=== PATIENT | female | born 1995 | race Caucasian/White ===

== ENCOUNTER 2018-11-09 18:21 | Emergency (ER) | payer SELFPAY ==
[~2018-11-09] VITALS: Ht 149.9 cm; Wt 63.5 kg
[2018-11-09 18:21] VITALS: BP_SYST 129
--- NOTE | 2018-11-09 18:27 | NUR ---
BROUGHT BACK TO BED #2 AND TRIAGED. REPORT GIVEN TO ROX
--- NOTE | 2018-11-09 18:45 | NUR ---
Patient is awake, alert, and oriented x4. She is complaining of bump on her lip since yesterday. Denies pain, nausea, vomiting.
--- NOTE | 2018-11-09 18:47 | NUR ---
PITA June at bedside examining patient.
[2018-11-09 19:15] VITALS: BP_SYST 129
--- NOTE | 2018-11-09 19:15 | NUR ---
Patient given written and verbal discharge instructions and verbalizes understanding. ER MD discussed with patient the results and treatment provided. Patient in stable condition. ID arm band removed. Rx of abreva given. Patient educated on pain management and to follow up with PMD. Pain Scale 0/10. Opportunity for questions provided and answered. Medication side effect fact sheet provided.
== END 2018-11-09 19:15 | disposition home or self-care (01) ==
LOC: SED 18:21
DX: B00.9 Herpesviral infection, unspecified (principal); R03.0 Elevated blood-pressure reading, without diagnosis of hypertension
CPT/HCPCS: 99282

== ENCOUNTER 2018-11-14 21:01 | Emergency (ER) | payer SELFPAY ==
[~2018-11-14] VITALS: Ht 149.9 cm; Wt 63.5 kg
[2018-11-14 21:15] VITALS: BP_SYST 118
--- NOTE | 2018-11-14 23:36 | NUR ---
2336 - [facility], no answer in lobby, not found in bathroom
== END 2018-11-14 23:36 | disposition left against medical advice (07) ==
LOC: SED 21:01
DX: N89.8 Other specified noninflammatory disorders of vagina (principal); Z53.21 Procedure and treatment not carried out due to patient leaving prior to being seen by health care provider

== ENCOUNTER 2018-11-15 17:22 | Emergency (ER) | payer SELFPAY ==
[~2018-11-15] VITALS: Ht 149.9 cm; Wt 63.5 kg
[2018-11-15 17:46] VITALS: BP_SYST 145
[2018-11-15] MEDS ORDERED: cefTRIAXone 250 MG in LIDOCAINE 1%, 20 ML MDV 0.9 ML IM ONE (18:00)
[2018-11-15] MEDS ORDERED: AZITHROMYCIN 250 MG TABLET PO ONE (18:00)
[2018-11-15 19:30] VITALS: BP_SYST 145
[2018-11-18 05:06] LABS: CHLAMYDIA TRACHOMATIS NAA Negative (Negative); NEISSERIA GONORRHOEAE NAA Negative (Negative)
== END 2018-11-15 19:30 | disposition home or self-care (01) ==
LOC: SED 17:22
DX: N76.0 Acute vaginitis (principal); B96.89 Other specified bacterial agents as the cause of diseases classified elsewhere; R03.0 Elevated blood-pressure reading, without diagnosis of hypertension
CPT/HCPCS: 81002; 81025; 87210; 87491; 87591; 96372; 99283; J0696; J2001; Q0144

== ENCOUNTER 2019-02-21 19:40 | Emergency (ER) | payer MEDICAID ==
[~2019-02-21] VITALS: Ht 180.3 cm; Wt 68.9 kg
--- NOTE | 2019-02-21 19:42 | NUR ---
Patient to ER bed 07 to gown for evaluation. Side rails up.
--- NOTE | 2019-02-21 19:43 | NUR ---
Pt brought by self, A&Ox4, pt presents to ER with skin rash on ton lower extremities, pt is afebrile, no discharge noted. will cont to monitor.
--- NOTE | 2019-02-21 19:45 | NUR ---
Fani June NP at bedside examining patient
[2019-02-21 19:51] VITALS: BP_SYST 127
--- NOTE | 2019-02-21 20:18 | NUR ---
Patient given written and verbal discharge instructions and verbalizes understanding. ER MD discussed with patient the results and treatment provided. Patient in stable condition. ID arm band removed. Rx of keflex,permethrin, Mupirocin, Macrobid given. Patient educated on pain management and to follow up with PMD. Pain Scale 2/10 . Opportunity for questions provided and answered. Medication side effect fact sheet provided.
[2019-02-21 20:49] LABS: BILIRUBIN,URINE NEGATIVE (NEGATIVE); BLOOD, URINE NEGATIVE (NEGATIVE); CLARITY/URINE CLEAR (CLEAR); COLOR,URINE YELLOW (YELLOW); GLUCOSE,URINE NEGATIVE (NEGATIVE); KETONES,URINE TRACE (NEGATIVE); LEUKOCYTE ESTERASE ,URINE NEGATIVE (NEGATIVE); NITRITE, URINE POSITIVE (NEGATIVE); PH,URINE 5.5 (5.0-8.0); PROTEIN URINE NEGATIVE (NEGATIVE); UROBILINOGEN,URINE 0.2 (0.2-1.0)
[2019-02-21 21:01] LABS: BACTERIA,URINE MODERATE /HPF (None Seen); RBC,URINE 0-3 /HPF (0-3); WBC,URINE 0-3 /HPF (0-3)
== END 2019-02-21 20:14 | disposition home or self-care (01) ==
LOC: SED 19:40
DX: B86 Scabies (principal); L03.115 Cellulitis of right lower limb; N39.0 Urinary tract infection, site not specified; R03.0 Elevated blood-pressure reading, without diagnosis of hypertension
CPT/HCPCS: 81000-TC; 81025; 87086; 99283

== ENCOUNTER 2019-03-17 14:48 | Emergency (ER) | payer MEDICAID ==
[~2019-03-17] VITALS: Ht 162.6 cm; Wt 70.3 kg
[2019-03-17 14:55] VITALS: BP_SYST 123
[2019-03-17] MEDS ORDERED: NACL 0.9% 1,000 ML IV ONE (15:15)
[2019-03-17 15:42] VITALS: BP_SYST 120
== END 2019-03-17 15:35 | disposition home or self-care (01) ==
LOC: SED 14:48
DX: F14.10 Cocaine abuse, uncomplicated (principal); R03.0 Elevated blood-pressure reading, without diagnosis of hypertension
CPT/HCPCS: 93005; 99283